=== PATIENT | female | born 1965 | race Caucasian/White ===

== ENCOUNTER 2017-04-05 01:43 | Emergency (ER) | payer SELFPAY ==
[2017-04-05] MEDS ORDERED: Acetaminophen 500 MG TAB ONE (02:42)
== END 2017-04-05 03:50 | disposition home or self-care (01) ==
LOC: SCSER 01:43
DX: B34.9 Viral infection, unspecified (principal)
CPT/HCPCS: 87081; 87430; 99283

== ENCOUNTER 2022-02-20 09:37 | Outpatient (CLI) | payer OTHER ==
[2022-02-20 11:07] LABS: INR-International Normal Ratio 0.9; Prothrombin Time 9.6 sec (9.5-12.1)
[2022-02-20 11:10] LABS: #Basophils 0.1 10x3/uL (0.0-0.2); #Eosinphils 0.2 10x3/uL (0.0-0.5); #Monocytes 0.6 10x3/uL (0.0-1.1); #Neutrophils 3.6 10x3/uL (1.5-8.4); %Basophils 0.9 % (0.0-2.0); %Eosinophils 2.3 % (0.0-6.0); %Lymphocytes 31.9 % (18.0-47.0); %Monocytes 8.6 % (0.0-10.0); Anion Gap 14 mmol/L (10-20); BUN (Urea Nitrogen) 17 mg/dL (9.8-20.1); Calc. Creatinine Clearance 0 mL/min (70-130); Calcium 9.3 mg/dL (7.8-10.44); Carbon Dioxide 24 mmol/L (22-29); Chloride 106 mmol/L (98-107); Estimated GFR 58; Glucose 112 mg/dL (70-105); Hemoglobin 12.5 g/dL (12.0-15.5); Mean Corpuscular HGB CONC 31.9 g/dL (32.0-36.0); Mean Corpuscular Hemoglobin 27.7 pg (27.0-33.0); Mean Corpuscular Volume 86.9 fl (81.6-98.3); Mean Platelet Volume 9.6 fl (7.4-10.4); Platelet Count 286 10x3/uL (150-450); Potassium 3.9 mmol/L (3.5-5.1); RBC Distribution Width 14.4 % (11.5-14.5); Red Blood Cell (RBC) Count 4.51 10x6/uL (3.90-5.03); Sodium 140 mmol/L (136-145); White Blood Cell (WBC) Count 6.5 10x3/uL (3.5-10.5)
== END 2022-02-20 09:38 | disposition home or self-care (01) ==
LOC: LABBT 09:37
PROVIDERS: ATTEND Orthopaedic Surgery
DX: Z01.818 Encounter for other preprocedural examination (principal); M16.11 Unilateral primary osteoarthritis, right hip
CPT/HCPCS: 80048; 85025; 85610; 87081; 93005; 93010

== ENCOUNTER 2022-02-25 06:55 | Observation (INO) | payer OTHER ==
[2022-02-21 13:44] VITALS: BMI 34.2
[2022-02-25] MEDS ORDERED: Tranexamic Acid 1,000 MG/10 ML VIAL ONE ×2 (07:31→11:51)
[2022-02-25] MEDS ORDERED: Sodium Chloride 0.9% 100 ML ONE ×2 (07:31→09:24)
[2022-02-25] MEDS ORDERED: Vancomycin (BATCH) 1.5 GRAM/300 ML BAG ONE (07:31)
[2022-02-25 08:40] LABS: SARS-CoV-2 NAA Rapid Test Not Detected (NotDetected)
[2022-02-25] MEDS ORDERED: Acetaminophen 500 MG TAB PO PRN (09:07)
[2022-02-25] MEDS ORDERED: Zolpidem Tartrate 5 MG TAB PO PRN (09:15)
[2022-02-25] MEDS ORDERED: traMADol HCl 50 MG TAB PO PRN ×2 (09:15)
[2022-02-25] MEDS ORDERED: Promethazine HCl 25 MG/ML VIAL IM PRN (09:15)
[2022-02-25] MEDS ORDERED: Ondansetron PF 4 MG/2 ML Vial IVP PRN (09:15)
[2022-02-25] MEDS ORDERED: Bupivacaine 0.25% 10 ML VIAL EPIDURAL PRN (09:15)
[2022-02-25] MEDS ORDERED: HYDROcodone/Acetaminophen 5/325 mg Tablet PO PRN ×2 (09:15)
[2022-02-25] MEDS ORDERED: Moisturizing Cream (Eucerin) 113 GM JAR TOP PRN (09:15)
[2022-02-25] MEDS ORDERED: diphenhydrAMINE 50 MG/ML VIAL IM PRN (09:15)
[2022-02-25] MEDS ORDERED: Naloxone HCl 0.4 mg/ml Vial IV PRN (09:15)
[2022-02-25] MEDS ORDERED: diphenhydrAMINE 50 MG/ML VIAL IVP PRN (09:15)
[2022-02-25] MEDS ORDERED: Promethazine HCl 25 MG SUPP PR PRN (09:15)
[2022-02-25] MEDS ORDERED: diphenhydrAMINE 25 MG CAP PO PRN (09:15)
[2022-02-25] MEDS ORDERED: Naloxone HCl 0.4 mg/ml Vial IVP PRN (09:15)
[2022-02-25] MEDS ORDERED: FENTANYL 500 MCG/10 ML VIAL 500 MCG, Bupivacaine 0.75% 10 ML in Sodium Chloride 0.9% 80 ML EPIDURAL SCH (09:15)
[2022-02-25] MEDS ORDERED: Famotidine/PF 20 mg/2ml Vial ONE (09:23)
[2022-02-25] MEDS ORDERED: Bupivacaine/Epinephrine 0.25% 30 ML VIAL ONE (09:23)
[2022-02-25] MEDS ORDERED: CEFAZOLIN 2 GM VIAL ONE (09:24)
[2022-02-25] MEDS ORDERED: fentaNYL PF 100 MCG/2 ML SYRINGE ONE (09:32)
[2022-02-25] MEDS ORDERED: Lidocaine 1.5% w/Epi 1:200K 30 ML VIAL (Epid Use) ONE (09:38)
[2022-02-25] MEDS ORDERED: Rocuronium Bromide 10 MG/ML (10ML VIAL) ONE (09:38)
[2022-02-25] MEDS ORDERED: Dexamethasone 20 MG/5 ML VIAL ONE (09:38)
[2022-02-25] MEDS ORDERED: Ketorolac Tromethamine 30 MG/ML VIAL ONE (09:38)
[2022-02-25] MEDS ORDERED: PROPOFOL 200 MG/20 ML VIAL ONE (09:38)
[2022-02-25] MEDS ORDERED: Ondansetron PF 4 MG/2 ML Vial ONE (09:38)
[2022-02-25] MEDS ORDERED: Phenylephrine 10 MG/ML VIAL ONE (09:38)
[2022-02-25] MEDS ORDERED: ePHEDrine 50 MG/ML VIAL ONE (09:38)
[2022-02-25] MEDS ORDERED: Glycopyrrolate 0.2 MG/ML 5 ML SYRINGE ONE (09:38)
[2022-02-25] MEDS ORDERED: NEOSTIGMINE 3 MG/3 ML SYR 3 MG/3 ML SYRINGE ONE (09:38)
[2022-02-25] MEDS ORDERED: HYDROmorphone 2 MG/ML VIAL SLOW IVP PRN (10:53)
[2022-02-25] MEDS ORDERED: Meperidine HCl/PF 25 MG/ML VIAL SLOW IVP PRN (10:53)
[2022-02-25] MEDS ORDERED: Promethazine HCl 25 MG/ML VIAL IVPB PRN (10:53)
[2022-02-25] MEDS ORDERED: Acetaminophen 325 MG TAB PO PRN (11:55)
[2022-02-25] MEDS ORDERED: FENTANYL 50 MCG/ML 1 ML VIAL ONE (12:03)
[2022-02-25] MEDS: CEFAZOLIN 2 GM in Sodium Chloride 0.9% 100 ML IVPB SCH (17:07)
[2022-02-25] MEDS ORDERED: Vancomycin HCl 1.5 GM in Sodium Chloride 0.9% 250 ML 300 ML IVPB SCH (20:00)
[2022-02-25] MEDS: Sodium Chloride 0.9% 1,000 ML IV SCH ×2 (20:55→23:24)
[2022-02-25] MEDS: Senokot S 8.6-50 MG TAB PO SCH (20:55)
[2022-02-25] MEDS: Aspirin 81 mg Enteric Coated Tablet PO SCH (20:55)
[2022-02-25] MEDS: Ferrous Gluconate 324 MG TAB PO SCH (20:55)
[2022-02-26] MEDS: CEFAZOLIN 2 GM in Sodium Chloride 0.9% 100 ML IVPB SCH (00:26)
[2022-02-26 05:30] LABS: Hemoglobin 10.6 g/dL (12.0-16.0); Mean Corpuscular HGB CONC 31.8 g/dL (32.0-36.0); Mean Corpuscular Hemoglobin 28.2 pg (27.0-31.0); Mean Corpuscular Volume 88.6 fl (78.0-98.0); Mean Platelet Volume 7.5 fL (7.4-10.4); Platelet Count 279 10x3/uL (130-400); Red Blood Cell (RBC) Count 3.77 mill/uL (4.20-5.40); White Blood Cell (WBC) Count 12.9 10x3/uL (4.8-10.8)
[2022-02-26] MEDS: Multivitamin W/ Minerals 1 TAB PO SCH (08:44)
[2022-02-26] MEDS: Senokot S 8.6-50 MG TAB PO SCH ×2 (08:45→20:32)
[2022-02-26] MEDS: Aspirin 81 mg Enteric Coated Tablet PO SCH ×2 (08:45→20:32)
[2022-02-26] MEDS: Ferrous Gluconate 324 MG TAB PO SCH ×2 (08:45→20:32)
[2022-02-26] MEDS: Sodium Chloride 0.9% 1,000 ML IV SCH ×2 (12:30→18:25)
[2022-02-26] MEDS: Cephalexin 250 MG CAP PO SCH ×3 (12:37→23:46)
[2022-02-26] MEDS: HYDROcodone/Acetaminophen 10/325 mg Tablet PO PRN ×2 (14:26→20:32)
[2022-02-26] MEDS: Ketorolac Tromethamine 30 MG/ML VIAL IVP PRN (17:36)
[2022-02-27] MEDS: HYDROcodone/Acetaminophen 10/325 mg Tablet PO PRN ×5 (02:39→23:44)
[2022-02-27] MEDS: Ketorolac Tromethamine 30 MG/ML VIAL IVP PRN (02:43)
[2022-02-27] MEDS: Sodium Chloride 0.9% 1,000 ML IV SCH ×3 (04:18→23:41)
[2022-02-27] MEDS: Cephalexin 250 MG CAP PO SCH ×4 (05:31→23:42)
[2022-02-27 06:26] LABS: Hemoglobin 10.2 g/dL (12.0-16.0); Mean Corpuscular HGB CONC 30.6 g/dL (32.0-36.0); Mean Corpuscular Hemoglobin 28.4 pg (27.0-31.0); Mean Corpuscular Volume 92.6 fl (78.0-98.0); Mean Platelet Volume 7.9 fL (7.4-10.4); Platelet Count 226 10x3/uL (130-400); RBC Distribution Width 13.6 % (11.5-14.5); Red Blood Cell (RBC) Count 3.59 mill/uL (4.20-5.40); White Blood Cell (WBC) Count 10.8 10x3/uL (4.8-10.8)
[2022-02-27] MEDS: Ferrous Gluconate 324 MG TAB PO SCH ×2 (09:09→19:40)
[2022-02-27] MEDS: Multivitamin W/ Minerals 1 TAB PO SCH (09:09)
[2022-02-27] MEDS: Senokot S 8.6-50 MG TAB PO SCH ×2 (09:09→19:40)
[2022-02-27] MEDS: Aspirin 81 mg Enteric Coated Tablet PO SCH ×2 (09:09→19:39)
[2022-02-27] MEDS ORDERED: Venlafaxine XR 37.5 MG CAP PO SCH (12:00)
[2022-02-27] MEDS ORDERED: Carvedilol 25 MG TAB PO SCH (12:00)
[2022-02-27] MEDS: Carvedilol 25 MG TAB PO SCH (19:40)
[2022-02-28 04:45] VITALS: TEMP 98.4
[2022-02-28 04:49] LABS: Hemoglobin 9.8 g/dL (12.0-16.0); Mean Corpuscular HGB CONC 30.9 g/dL (32.0-36.0); Mean Corpuscular Hemoglobin 28.4 pg (27.0-31.0); Mean Platelet Volume 7.8 fL (7.4-10.4); Platelet Count 231 10x3/uL (130-400); RBC Distribution Width 13.6 % (11.5-14.5); Red Blood Cell (RBC) Count 3.45 mill/uL (4.20-5.40); White Blood Cell (WBC) Count 10.5 10x3/uL (4.8-10.8)
[2022-02-28] MEDS: Cephalexin 250 MG CAP PO SCH ×2 (05:14→11:02)
[2022-02-28] MEDS: HYDROcodone/Acetaminophen 10/325 mg Tablet PO PRN ×2 (05:14→11:01)
[2022-02-28] MEDS: Multivitamin W/ Minerals 1 TAB PO SCH (08:33)
[2022-02-28] MEDS: Aspirin 81 mg Enteric Coated Tablet PO SCH (08:33)
[2022-02-28] MEDS: Ferrous Gluconate 324 MG TAB PO SCH (08:33)
[2022-02-28] MEDS: Senokot S 8.6-50 MG TAB PO SCH (08:33)
[2022-02-28] MEDS: Carvedilol 25 MG TAB PO SCH (08:34)
[2022-02-28] MEDS ORDERED: Venlafaxine XR 37.5 MG CAP PO SCH (09:00)
[2022-02-28 09:51] VITALS: BP 124/81
[2022-02-28] MEDS: Sodium Chloride 0.9% 1,000 ML IV SCH (10:19)
== END 2022-02-28 12:40 | disposition home or self-care (01) ==
LOC: SDC 06:55 → SURG B 13:12
PROVIDERS: ADMIT Orthopaedic Surgery; ATTEND Orthopaedic Surgery
PROC: 0SR904A Replacement of Right Hip Joint with Ceramic on Polyethylene Synthetic Substitute, Uncemented, Open Approach (ICD-10-PCS; principal; 2022-02-25)
DX: M16.11 Unilateral primary osteoarthritis, right hip (principal); I10 Essential (primary) hypertension; Z86.16 Personal history of COVID-19; Z79.899 Other long term (current) drug therapy; Z88.7 Allergy status to serum and vaccine; Z20.822 Contact with and (suspected) exposure to COVID-19
CPT/HCPCS: 36415; 72170; 85027; C1713; C1776; J1100; J1200; J1885; J2001; J2370; J2405; J2704; J3010; J3370; J3490; J7050; S0028; U0002

== ENCOUNTER 2022-07-21 10:01 | Outpatient (CLI) | payer OTHER ==
[2022-07-21 12:27] LABS: #Basophils 0.1 10x3/uL (0.0-0.2); #Eosinphils 0.2 10x3/uL (0.0-0.5); #Monocytes 0.7 10x3/uL (0.0-1.1); #Neutrophils 5.3 10x3/uL (1.5-8.4); %Basophils 0.9 % (0.0-2.0); %Eosinophils 2.1 % (0.0-6.0); %Monocytes 8.4 % (0.0-10.0); %Neutrophils 62.2 % (40.0-75.0); Hemoglobin 12.4 g/dL (12.0-15.5); Mean Corpuscular HGB CONC 31.2 g/dL (32.0-36.0); Mean Corpuscular Volume 86.7 fl (81.6-98.3); Mean Platelet Volume 10.6 fl (7.4-10.4); Platelet Count 305 10x3/uL (150-450); RBC Distribution Width 13.6 % (11.5-14.5); Red Blood Cell (RBC) Count 4.59 10x6/uL (3.90-5.03); White Blood Cell (WBC) Count 8.5 10x3/uL (3.5-10.5)
[2022-07-21 12:36] LABS: INR-International Normal Ratio 0.9; Prothrombin Time 9.7 sec (9.5-12.1)
[2022-07-21 12:57] LABS: Anion Gap 17 mmol/L (10-20); BUN (Urea Nitrogen) 13 mg/dL (9.8-20.1); Calc. Creatinine Clearance 0 mL/min (70-130); Calcium 8.7 mg/dL (7.8-10.44); Carbon Dioxide 23 mmol/L (22-29); Chloride 104 mmol/L (98-107); Estimated GFR 63; Glucose 94 mg/dL (70-105); Sodium 139 mmol/L (136-145)
== END 2022-07-21 10:02 | disposition home or self-care (01) ==
LOC: LABBT 10:01
PROVIDERS: ATTEND Orthopaedic Surgery
DX: Z01.818 Encounter for other preprocedural examination (principal); M19.011 Primary osteoarthritis, right shoulder
CPT/HCPCS: 80048; 85025; 85610; 93005; 93010

== ENCOUNTER 2022-07-22 06:41 | Observation (INO) | payer OTHER ==
[2022-07-22] MEDS ORDERED: Tranexamic Acid 1,000 MG/10 ML VIAL ONE (07:55)
[2022-07-22] MEDS ORDERED: Sodium Chloride 0.9% 100 ML ONE ×2 (07:55→09:21)
[2022-07-22] MEDS ORDERED: Midazolam HCl 2 mg/2 ml Vial ONE (08:22)
[2022-07-22] MEDS ORDERED: fentaNYL 50 mcg/mL 1 mL Vial ONE ×2 (08:22→12:16)
[2022-07-22] MEDS ORDERED: Ropivacaine 0.5% HCl/PF (150 MG/30 ML VIAL) ONE (08:23)
[2022-07-22] MEDS ORDERED: Lidocaine 1% (PF) 30 ML VIAL ONE (08:23)
[2022-07-22] MEDS ORDERED: Ropivacaine 0.2% HCl/PF 20 ML ONE (08:23)
[2022-07-22] MEDS ORDERED: Acetaminophen 500 MG TAB ONE (08:47)
[2022-07-22] MEDS ORDERED: fentaNYL PF 100 MCG/2 ML SYRINGE ONE (09:05)
[2022-07-22] MEDS ORDERED: Vancomycin (BATCH) 1.5 GRAM/300 ML BAG ONE (09:20)
[2022-07-22] MEDS ORDERED: CEFAZOLIN 2 GM VIAL ONE (09:21)
[2022-07-22] MEDS ORDERED: Rocuronium Bromide 10 MG/ML (10ML VIAL) ONE (09:29)
[2022-07-22] MEDS ORDERED: NEOSTIGMINE 3 MG/3 ML SYR 3 MG/3 ML SYRINGE ONE (09:29)
[2022-07-22] MEDS ORDERED: Ondansetron PF 4 MG/2 ML Vial ONE (09:29)
[2022-07-22] MEDS ORDERED: Dexamethasone 20 MG/5 ML VIAL ONE (09:29)
[2022-07-22] MEDS ORDERED: PROPOFOL 200 MG/20 ML VIAL ONE (09:29)
[2022-07-22] MEDS ORDERED: GLYCOPYRROLATE/PF 0.2 MG/ML VIAL ONE (09:29)
[2022-07-22] MEDS ORDERED: Zolpidem Tartrate 5 MG TAB PO PRN (09:30)
[2022-07-22] MEDS ORDERED: Ondansetron PF 4 MG/2 ML Vial IVP PRN (09:30)
[2022-07-22] MEDS ORDERED: Promethazine HCl 25 MG/ML VIAL IM PRN ×2 (09:30→10:04)
[2022-07-22] MEDS ORDERED: fentaNYL 50 mcg/mL 1 mL Vial SLOW IVP PRN (09:30)
[2022-07-22] MEDS ORDERED: Ropivacaine 0.2% 550 ML 550 ML NERVE BLCK SCH (09:30)
[2022-07-22] MEDS ORDERED: traMADol HCl 50 MG TAB PO PRN ×2 (09:30)
[2022-07-22] MEDS ORDERED: Ondansetron HCl/PF 4 MG/2 ML Vial IVP PRN (10:04)
[2022-07-22] MEDS ORDERED: Acetaminophen 325 MG TAB PO PRN (12:21)
[2022-07-22] MEDS ORDERED: Milk Of Magnesia 30 ML UDCUP PO PRN (12:21)
[2022-07-22] MEDS ORDERED: Bisacodyl 10 MG SUPP PR PRN (12:21)
[2022-07-22] MEDS ORDERED: diphenhydrAMINE 50 MG CAP PO PRN (12:21)
[2022-07-22] MEDS ORDERED: Methocarbamol 500 MG TAB PO PRN (12:21)
[2022-07-22] MEDS ORDERED: Ketorolac Tromethamine 30 MG/ML VIAL ONE (12:31)
[2022-07-22] MEDS: Ketorolac Tromethamine 30 MG/ML VIAL IVP SCH ×3 (12:32→23:43)
[2022-07-22] MEDS: Sodium Chloride 0.9% 1,000 ML IV SCH (12:47)
[2022-07-22] MEDS ORDERED: HYDROcodone/Acetaminophen 5/325 mg Tablet ONE (16:22)
[2022-07-22] MEDS: HYDROcodone/Acetaminophen 5/325 mg Tablet PO PRN ×2 (16:23→21:20)
[2022-07-22 17:38] VITALS: BMI 34.7
[2022-07-22] MEDS: CEFAZOLIN 2 GM in Sodium Chloride 0.9% 100 ML IVPB SCH (18:29)
[2022-07-22] MEDS ORDERED: Phenol 118 ML BOT PO PRN (19:14)
[2022-07-22] MEDS: Famotidine 20 MG TAB PO SCH (21:19)
[2022-07-22] MEDS: Benzonatate 100 MG CAP PO PRN (21:19)
[2022-07-23] MEDS: CEFAZOLIN 2 GM in Sodium Chloride 0.9% 100 ML IVPB SCH (01:50)
[2022-07-23] MEDS: HYDROcodone/Acetaminophen 5/325 mg Tablet PO PRN ×2 (01:50→08:49)
[2022-07-23 05:07] VITALS: TEMP 97.9
[2022-07-23] MEDS: Sodium Chloride 0.9% 1,000 ML IV SCH (05:19)
[2022-07-23] MEDS: Ketorolac Tromethamine 30 MG/ML VIAL IVP SCH (05:43)
[2022-07-23] MEDS: Famotidine 20 MG TAB PO SCH (08:49)
[2022-07-23] MEDS: Benzonatate 100 MG CAP PO PRN (08:49)
[2022-07-23 11:48] VITALS: BP 154/90
== END 2022-07-23 12:39 | disposition home or self-care (01) ==
LOC: SDC 06:41 → SURG A 12:21
PROVIDERS: ADMIT Orthopaedic Surgery; ATTEND Orthopaedic Surgery
PROC: 0RRJ0JZ Replacement of Right Shoulder Joint with Synthetic Substitute, Open Approach (ICD-10-PCS; principal; 2022-07-22)
DX: M19.011 Primary osteoarthritis, right shoulder (principal); S46.211A Strain of muscle, fascia and tendon of other parts of biceps, right arm, initial encounter; M96.820 Accidental puncture and laceration of a musculoskeletal structure during a musculoskeletal system procedure; M16.12 Unilateral primary osteoarthritis, left hip; I10 Essential (primary) hypertension; Z86.16 Personal history of COVID-19; Z79.899 Other long term (current) drug therapy; Z88.7 Allergy status to serum and vaccine; Z96.641 Presence of right artificial hip joint
CPT/HCPCS: 96365; 96375; 96376; A4306; C1713; C1776; C1889; G0378; J1100; J1885; J2001; J2250; J2405; J2704; J2795; J3010; J3370; J3490